=== PATIENT | female | born 1995 ===

== ENCOUNTER 2021-06-25 13:51 | Emergency (ER) | payer OTHER ==
[2021-06-25 16:34] VITALS: BP 117/82
--- NOTE | 2021-06-25 17:38 | Emergency Department Report ---
HPI - General Chief Complaint: Allergic Reaction Time Seen by Provider: 06/25/21 17:27 ED Past Medical Hx - Past Medical History Hx HIV: No Additional medical history: hyperthyroidism - Surgical History Past Surgical History?: No - Social History Smoking Status: Never Smoker - Medications Home Medications: Home Medications Medication Instructions Recorded Confirmed Last Taken Type oxyCODONE /ACETAMINOPHEN [Percocet 2 tab PO Q6HR PRN #20 tablet 03/17/20 Unknown Rx 5/325] ED Review of Systems ROS: Stated complaint: PARALYSIS LT FACE Other details as noted in HPI Physical Exam - Physical Exam Vital Signs: Vital Signs 06/25/21 06/25/21 06/25/21 16:32 16:33 16:35 Temperature 97.5 F L 97.5 F L Pulse Rate 90 90 Respiratory 16 16 Rate Blood Pressure 117/82 Blood Pressure 117/82 [Right] O2 Sat by Pulse 96 96 Oximetry ED Course Vital Signs 06/25/21 06/25/21 06/25/21 16:32 16:33 16:35 Temperature 97.5 F L 97.5 F L Pulse Rate 90 90 Respiratory 16 16 Rate Blood Pressure 117/82 Blood Pressure 117/82 [Right] O2 Sat by Pulse 96 96 Oximetry Critical care attestation.: If time is entered above; I have spent that time in minutes in the direct care of this critically ill patient, excluding procedure time. ED Disposition Condition: Stable
--- NOTE | 2021-06-25 17:47 | Emergency Department Report ---
ED General Adult HPI - General Chief complaint: Allergic Reaction Stated complaint: PARALYSIS LT FACE PUI?: No Time Seen by Provider: 06/25/21 17:27 Source: patient Mode of arrival: Ambulatory Limitations: No Limitations - History of Present Illness Initial comments: This is a 25-year-old female she was diagnosed with thyroid disorder presents to the ED today complaining of left-sided facial stiffness x1 week. Patient states that she was prescribed by her account services associate, Methimazole 5 mg which she has been taking since June 12, 2021 for thyroid disorder. Patient states on he started with her tongue she had lost sensation on the left side of her tongue. Patient states that is slowly progressed where she is having left- sided facial stiffness and immobility. Patient denies any headache, dizziness, trauma to the head, lightheadedness, blurry vision, chest pain or shortness of breath. Patient did note that when she called her account services associate and he told her to stop taking the medication. Patient is states that she came to the ED to be evaluated. Severity scale (0 -10): 0 - Related Data Previous Rx's Medication Instructions Recorded Last Taken Type oxyCODONE /ACETAMINOPHEN [Percocet 2 tab PO Q6HR PRN #20 tablet 03/17/20 Unknown Rx 5/325] Tetrahydroz/Dext 70/Peg 400/Pv 1 - 2 drops OP TID #15 ml 06/25/21 Unknown Rx [Eye Drops Advanced Relief] predniSONE [Deltasone] 40 mg PO QDAY 5 Days #20 tab 06/25/21 Unknown Rx Allergies Allergy/AdvReac Type Severity Reaction Status Date / Time No Known Allergies Allergy Unverified 03/14/20 05:28 ED Review of Systems ROS: Stated complaint: PARALYSIS LT FACE Other details as noted in HPI Comment: All other systems reviewed and negative ED Past Medical Hx - Past Medical History Hx HIV: No Additional medical history: hyperthyroidism - Surgical History Past Surgical History?: No - Social History Smoking Status: Never Smoker - Medications Home Medications: Home Medications Medication Instructions Recorded Confirmed Last Taken Type oxyCODONE /ACETAMINOPHEN [Percocet 2 tab PO Q6HR PRN #20 tablet 03/17/20 Unknown Rx 5/325] Tetrahydroz/Dext 70/Peg 400/Pv 1 - 2 drops OP TID #15 ml 06/25/21 Unknown Rx [Eye Drops Advanced Relief] predniSONE [Deltasone] 40 mg PO QDAY 5 Days #20 tab 06/25/21 Unknown Rx ED Physical Exam - General Limitations: No Limitations General appearance: alert, in no apparent distress - Head Head exam: Present: atraumatic, normocephalic - Eye Eye exam: Present: normal appearance - ENT ENT exam: Present: mucous membranes moist - Neck Neck exam: Present: normal inspection, full ROM. Absent: tenderness - Respiratory Respiratory exam: Present: normal lung sounds bilaterally. Absent: respiratory distress - Cardiovascular Cardiovascular Exam: Present: regular rate, normal rhythm. Absent: systolic murmur, diastolic murmur, rubs, gallop - GI/Abdominal GI/Abdominal exam: Present: soft, normal bowel sounds - Extremities Exam Extremities exam: Present: normal inspection, full ROM - Back Exam Back exam: Present: normal inspection - Neurological Exam Neurological exam: Present: alert, oriented X3, normal gait - Expanded Neurological Exam Expanded Patient oriented to: Present: person, place, time Speech: Present: fluid speech Cranial nerves: EOM's Intact: Normal, Tongue Deviation: Normal, Nystagmus: Normal, Facial Sensation: Normal, Facial Palsy with Forehead Movement: Normal Cerebellar function: Finger to Nose: Normal Best Eye Response (Marilyn): (4) open spontaneously Best Motor Response ([place]): (6) obeys commands Best Verbal Response (Marilyn): (5) oriented Marilyn Total: 15 - Psychiatric Psychiatric exam: Present: normal affect, normal mood - Skin Skin exam: Present: warm, dry, intact, normal color. Absent: rash - Other Other exam information: Left-sided facial immobility. Patient able to follow directions such as closing her eyes and raising her eyebrows which can be completed there is a fissure normality with smiling. Left-sided has less movement than the right sided face ED Course Vital Signs 06/25/21 06/25/21 06/25/21 16:32 16:33 16:35 Temperature 97.5 F L 97.5 F L Pulse Rate 90 90 Respiratory 16 16 Rate Blood Pressure 117/82 Blood Pressure 117/82 [Right] O2 Sat by Pulse 96 96 Oximetry ED Medical Decision Making - Medical Decision Making This 25-year-old female presented with Lynn's palsy on the left side. Vital signs are stable throughout ED stay. Patient had no neurological deficit. Patient speaking clear sentences. Discussed with patient follow-up with neurologist within 2 to 3 days. Discussed with patient is any worsening symptoms she will return to the ED immediately. Critical care attestation.: If time is entered above; I have spent that time in minutes in the direct care of this critically ill patient, excluding procedure time. ED Disposition Clinical Impression: Lynn's palsy Disposition: HOME / SELF CARE / HOMELESS Is pt being admited?: No Does the pt Need Aspirin: No Condition: Stable Instructions: Lynn Palsy, Adult Additional Instructions: Make sure to follow up with the primary care physician as discussed. Take all your medications as you've been prescribed. If you have any worsening symptoms or develop new symptoms please return to ED immediately. Prescriptions: predniSONE [Deltasone] 40 mg PO QDAY 5 Days #20 tab Tetrahydroz/Dext 70/Peg 400/Pv [Eye Drops Advanced Relief] 1 - 2 drops OP TID #15 ml Referrals: NISA HILARIO MD [Staff Physician] - 3-5 Days [facility] [Provider Group] - 3-5 Days Forms: Work/School Release Form(ED) Time of Disposition: 17:52
== END 2021-06-25 18:50 | disposition home or self-care (01) ==
LOC: ED 13:51
DX: G51.0 Bell's palsy (principal); E05.90 Thyrotoxicosis, unspecified without thyrotoxic crisis or storm
CPT/HCPCS: 99282